=== PATIENT | female | born 1975 | race Caucasian/White ===

== ENCOUNTER 2018-09-20 18:07 | Emergency (ER) | payer SELFPAY ==
[2018-09-20] MEDS ORDERED: Bacitracin Zinc 1 Packet ONE (20:15)
[2018-09-20] MEDS ORDERED: cefTRIAXone\\ROCEPHIN 1 GM VIAL ONE (20:19)
[2018-09-20] MEDS ORDERED: Lidocaine 1% (PF) 30 ML VIAL ONE (20:19)
[2018-09-20] MEDS ORDERED: Hydrochlorothiazide 25 MG TAB PO SCH (20:30)
[2018-09-20] MEDS ORDERED: metFORMIN 500 MG TAB PO SCH (20:30)
[2018-09-20] MEDS ORDERED: Lisinopril 2.5 MG TAB PO SCH (20:30)
== END 2018-09-20 20:58 | disposition home or self-care (01) ==
LOC: ERS 18:07
DX: L73.2 Hidradenitis suppurativa (principal); E11.65 Type 2 diabetes mellitus with hyperglycemia; F41.9 Anxiety disorder, unspecified; F32.9 Major depressive disorder, single episode, unspecified; Z87.891 Personal history of nicotine dependence; Z79.4 Long term (current) use of insulin; Z79.899 Other long term (current) drug therapy
CPT/HCPCS: 36416; 96372; J0696; J2001